=== PATIENT | male | born 1940 | race Caucasian/White ===

== ENCOUNTER 2017-04-23 10:55 | Inpatient (IN) ==
[2017-04-23] MEDS ORDERED: SODIUM CHLORIDE 0.9% 500 ML IV STA (11:22)
[2017-04-23 11:53] LABS: Basophils % 0.2 % (0.0-0.8); Hemoglobin 8.7 GM/DL (14.0-18.0); Immature Granulocytes Absolute 0.15 #; Lymphocytes # 1.1 10*3/uL (1.4-4.0); Lymphocytes % 7.3 % (21.2-54.2); Mean Corpuscular HGB Conc 32.2 GM/DL (32-36); Mean Corpuscular Hemoglobin 24 PG (27-34); Mean Corpuscular Volume 75.6 FL (87-102); Mean Platelet Volume 9.8 FL (9.6-12.0); Monocytes # 0.3 10*3/uL (0.11-0.8); Monocytes % 1.8 % (1.7-12.7); Neutrophils # 13.9 10*3/uL (1.4-7.4); Neutrophils % 89.7 % (38.7-73.9); Platelet Count 291 T/CUMM (130-400); Red Blood Count 3.57 MC/CUMM (3.8-5.5); Red Cell Distribution Width 15.4 % (9.3-17.3); White Blood Count 15.5 T/CUMM (4-12)
[2017-04-23 12:23] LABS: Bilirubin,Total 0.4 MG/DL (0.2-1.0); Magnesium 1.9 MG/DL (1.8-2.4); Osmolality,Calculated 277.7 MOS/KG (273-304); Total Protein 6.3 G/DL (6.4-8.3)
[2017-04-23 12:24] LABS: Lactic Acid 1.3 MMOL/L (0.4-2.0)
[2017-04-23 12:59] LABS: Apearance,Urine CLEAR (Clear); Bilirubin,Urine Negative (Negative); Blood, Urine Negative (Negative); Glucose,Urine (UA) Negative (Negative); Ketones,Urine Negative (Negative); Nitrite,Urine Negative (Negative); Protein,Urine Negative; RBC,Urine <1 /HPF (0-4); Urine Color Straw (Yellow); Urine Specific Gravity 1.006 (1.001-1.035); Urine Urobilinogen < 2.0 EU/DL (0.2-1.0); WBC,Urine 1 /HPF (0-6)
[2017-04-23] MEDS ORDERED: DOCUSATE SODIUM 100 MG CAPSULE PO PRN (13:49)
[2017-04-23] MEDS ORDERED: ONDANSETRON 4 MG/2 ML VIAL IV PRN (13:49)
[2017-04-23] MEDS ORDERED: ACETAMINOPHEN 325 MG TABLET PO PRN (13:49)
[2017-04-23] MEDS ORDERED: ALBUTEROL 2.5 MG/3 ML NEB RESP TX PRN (13:49)
[2017-04-23] MEDS ORDERED: MORPHINE 2 MG/1 ML SYRINGE IV PRN (13:49)
[2017-04-23] MEDS ORDERED: diphenhydrAMINE CAP 25 MG CAPSULE PO PRN (13:49)
[2017-04-23] MEDS ORDERED: PROMETHAZINE 25 MG/1 ML VIAL IM PRN (13:49)
[2017-04-23] MEDS ORDERED: FUROSEMIDE 20 MG TABLET PO PRN (14:01)
[2017-04-23] MEDS ORDERED: SODIUM CHLORIDE 0.65% NASAL SPRAY 45 ML BOTTLE BOTH NARES PRN (14:01)
[2017-04-23] MEDS ORDERED: LEVOFLOXACIN INJ 150 ML IV ONE (14:51)
[2017-04-23] MEDS ORDERED: LISINOPRIL 10 MG TABLET ONE (14:51)
[2017-04-23] MEDS ORDERED: ALUMINUM/MAGNES/SIMETH MAX STR 30 ML UDCUP ONE (14:52)
[2017-04-23] MEDS ORDERED: PANTOPRAZOLE 40 MG TABLET PO ONE (14:52)
[2017-04-23] MEDS ORDERED: ENOXAPARIN 40 MG/0.4 ML SYRINGE ONE (14:52)
[2017-04-23] MEDS ORDERED: TAMSULOSIN 0.4 MG CAPSULE PO ONE (14:52)
[2017-04-23] MEDS: LEVOFLOXACIN INJ 750 MG in PREMIX 1 EACH IV SCH (14:59)
[2017-04-23] MEDS: ENOXAPARIN 40 MG/0.4 ML SYRINGE SUBCUT SCH (15:01)
[2017-04-23] MEDS: PANTOPRAZOLE 40 MG TABLET PO SCH (15:02)
[2017-04-23] MEDS: LISINOPRIL 20 MG TABLET PO SCH ×2 (15:03→21:58)
[2017-04-23] MEDS: ALUMINUM/MAGNES/SIMETH MAX STR 30 ML UDCUP PO SCH ×3 (15:03→22:05)
[2017-04-23] MEDS: TAMSULOSIN 0.4 MG CAPSULE PO SCH ×2 (15:03→21:57)
[2017-04-23] MEDS: LACTULOSE 20 GM/30 ML UDCUP PO SCH ×2 (15:05→21:55)
[2017-04-23] MEDS: oxyCODONE/ACETAMINOPHEN 5-325 MG TABLET PO SCH ×2 (15:30→21:59)
[2017-04-23] MEDS ORDERED: oxyCODONE/ACETAMINOPHEN 5-325 MG TABLET ONE (15:30)
[2017-04-23] MEDS: clonazePAM 0.5 MG TABLET PO SCH ×2 (15:57→21:57)
[2017-04-23] MEDS: guaiFENesin/DM ER 600-30 MG TABLET PO SCH ×2 (16:12→21:59)
[2017-04-23] MEDS: CHOLECALCIFEROL 1,000 UNIT TABLET PO SCH ×2 (16:13→21:58)
[2017-04-23] MEDS: busPIRone 15 MG TABLET PO SCH ×2 (16:13→21:58)
[2017-04-23] MEDS: AZTREONAM 2,000 MG in SYRINGE 1 EACH IV SCH ×2 (16:29→21:51)
[2017-04-23] MEDS: MIRTAZAPINE 30 MG TABLET PO SCH (21:57)
[2017-04-23] MEDS: DICLOFENAC 1% GEL 100 GM TUBE TOP SCH (21:59)
[2017-04-23] MEDS: PRAMIPEXOLE 0.25 MG TABLET PO SCH (21:59)
[2017-04-23] MEDS: SALIVA SUBSTITUTE SPRAY 60 ML CAN SWISH/SPIT SCH ×2 (22:00)
[2017-04-23] MEDS: SODIUM CHLORIDE 0.9% 1,000 ML IV SCH ×2 (22:00→22:01)
[2017-04-23] MEDS: IBUPROFEN 400 MG TABLET PO SCH (22:04)
[2017-04-24] MEDS: ALBUTEROL/IPRATROPIUM 3 ML NEB RESP TX SCH ×5 (01:19→20:36)
[2017-04-24] MEDS: LACTULOSE 20 GM/30 ML UDCUP PO SCH ×5 (02:27→21:23)
[2017-04-24] MEDS: ALUMINUM/MAGNES/SIMETH MAX STR 30 ML UDCUP PO SCH ×3 (02:28→11:02)
[2017-04-24] MEDS: AZTREONAM 2,000 MG in SYRINGE 1 EACH IV SCH ×4 (04:12→21:47)
[2017-04-24] MEDS: SODIUM CHLORIDE 0.9% 1,000 ML IV SCH ×4 (04:15→23:44)
[2017-04-24] MEDS: SALIVA SUBSTITUTE SPRAY 60 ML CAN SWISH/SPIT SCH ×5 (05:39→21:48)
[2017-04-24 07:39] LABS: Basophils % 0.3 % (0.0-0.8); Eosinophils # 0.1 10*3/uL (0.0-0.87); Eosinophils % 1.8 % (0.00-10.9); Hematocrit 24.2 VOL% (42.0-52.0); Hemoglobin 7.5 GM/DL (14.0-18.0); Immature Granulocytes % 0.6 %; Immature Granulocytes Absolute 0.04 #; Lymphocytes # 2.4 10*3/uL (1.4-4.0); Lymphocytes % 34.9 % (21.2-54.2); Mean Corpuscular Hemoglobin 24 PG (27-34); Mean Corpuscular Volume 77.6 FL (87-102); Mean Platelet Volume 9.9 FL (9.6-12.0); Monocytes # 0.5 10*3/uL (0.11-0.8); Monocytes % 6.9 % (1.7-12.7); Neutrophils # 3.8 10*3/uL (1.4-7.4); Neutrophils % 55.5 % (38.7-73.9); Platelet Count 225 T/CUMM (130-400); Red Blood Count 3.12 MC/CUMM (3.8-5.5); Red Cell Distribution Width 15.6 % (9.3-17.3); White Blood Count 6.8 T/CUMM (4-12)
[2017-04-24 08:03] LABS: Calcium 7.4 MG/DL (8.5-10.1); Osmolality,Calculated 277.7 MOS/KG (273-304); Potassium 3.8 MMOL/L (3.5-5.1)
[2017-04-24] MEDS: clonazePAM 0.5 MG TABLET PO SCH ×3 (09:13→21:23)
[2017-04-24] MEDS: guaiFENesin/DM ER 600-30 MG TABLET PO SCH ×2 (09:13→21:23)
[2017-04-24] MEDS: PRAMIPEXOLE 0.25 MG TABLET PO SCH ×2 (09:13→17:56)
[2017-04-24] MEDS: LISINOPRIL 20 MG TABLET PO SCH ×2 (09:13→21:23)
[2017-04-24] MEDS: DICLOFENAC 1% GEL 100 GM TUBE TOP SCH ×2 (09:13→21:24)
[2017-04-24] MEDS: busPIRone 15 MG TABLET PO SCH ×3 (09:13→21:23)
[2017-04-24] MEDS: LACTOBACILLUS ACIDOPHILUS/BULGARICUS CAPLET PO SCH (09:14)
[2017-04-24] MEDS: POTASSIUM CHLORIDE 8 MEQ CAPSULE PO SCH (09:14)
[2017-04-24] MEDS: FINASTERIDE 5 MG TABLET PO SCH (09:14)
[2017-04-24] MEDS: CHOLECALCIFEROL 1,000 UNIT TABLET PO SCH ×2 (09:14→21:23)
[2017-04-24] MEDS: CARBIDOPA/LEVODOPA 25-100 MG TABLET PO SCH (09:14)
[2017-04-24] MEDS: OMEGA 3 ACID ETHYL ESTERS 1 GM CAPSULE PO SCH (09:14)
[2017-04-24] MEDS: PANTOPRAZOLE 40 MG TABLET PO SCH (09:14)
[2017-04-24] MEDS: MULTIVITAMIN (CENTRUM) TABLET PO SCH (09:14)
[2017-04-24] MEDS: oxyCODONE/ACETAMINOPHEN 5-325 MG TABLET PO SCH ×3 (09:14→21:30)
[2017-04-24] MEDS: amLODIPine 10 MG TABLET PO SCH (09:14)
[2017-04-24] MEDS: TAMSULOSIN 0.4 MG CAPSULE PO SCH ×2 (09:14→21:23)
[2017-04-24] MEDS: IBUPROFEN 400 MG TABLET PO SCH ×2 (09:14→17:53)
[2017-04-24] MEDS: METHEN/SOD PHOS/METH BLUE/HYOS TABLET PO SCH (09:15)
[2017-04-24] MEDS: POLYETHYLENE GLYCOL POWDER 17 GM PACK PO SCH ×2 (11:03→21:23)
[2017-04-24] MEDS: LEVOFLOXACIN INJ 750 MG in PREMIX 1 EACH IV SCH (14:18)
[2017-04-24] MEDS: ENOXAPARIN 40 MG/0.4 ML SYRINGE SUBCUT SCH (14:22)
[2017-04-24] MEDS: ALUMINUM/MAGNES/SIMETH MAX STR 30 ML UDCUP PO PRN (20:39)
[2017-04-24] MEDS: MIRTAZAPINE 30 MG TABLET PO SCH (21:23)
[2017-04-25] MEDS: ALBUTEROL/IPRATROPIUM 3 ML NEB RESP TX SCH ×4 (01:21→20:45)
[2017-04-25] MEDS: LACTULOSE 20 GM/30 ML UDCUP PO SCH ×3 (02:29→14:50)
[2017-04-25] MEDS: AZTREONAM 2,000 MG in SYRINGE 1 EACH IV SCH ×4 (05:10→23:02)
[2017-04-25] MEDS: SALIVA SUBSTITUTE SPRAY 60 ML CAN SWISH/SPIT SCH ×5 (06:11→23:11)
[2017-04-25 07:05] LABS: Basophils % 0.2 % (0.0-0.8); Eosinophils # 0.2 10*3/uL (0.0-0.87); Eosinophils % 1.5 % (0.00-10.9); Hematocrit 28.3 VOL% (42.0-52.0); Hemoglobin 8.8 GM/DL (14.0-18.0); Immature Granulocytes % 0.7 %; Immature Granulocytes Absolute 0.08 #; Lymphocytes # 1.3 10*3/uL (1.4-4.0); Mean Corpuscular HGB Conc 31.1 GM/DL (32-36); Mean Corpuscular Hemoglobin 24 PG (27-34); Mean Corpuscular Volume 78.2 FL (87-102); Mean Platelet Volume 10.3 FL (9.6-12.0); Monocytes # 0.5 10*3/uL (0.11-0.8); Monocytes % 4.5 % (1.7-12.7); Neutrophils # 9.9 10*3/uL (1.4-7.4); Neutrophils % 82.1 % (38.7-73.9); Platelet Count 282 T/CUMM (130-400); Red Blood Count 3.62 MC/CUMM (3.8-5.5); Red Cell Distribution Width 15.8 % (9.3-17.3)
[2017-04-25] MEDS: oxyCODONE/ACETAMINOPHEN 5-325 MG TABLET PO SCH ×3 (07:56→23:00)
[2017-04-25] MEDS: SODIUM CHLORIDE 0.9% 1,000 ML IV SCH ×2 (07:59→18:05)
[2017-04-25] MEDS: OMEGA 3 ACID ETHYL ESTERS 1 GM CAPSULE PO SCH (10:07)
[2017-04-25] MEDS: POTASSIUM CHLORIDE 8 MEQ CAPSULE PO SCH (10:08)
[2017-04-25] MEDS: FINASTERIDE 5 MG TABLET PO SCH (10:09)
[2017-04-25] MEDS: clonazePAM 0.5 MG TABLET PO SCH ×3 (10:09→23:01)
[2017-04-25] MEDS: LISINOPRIL 20 MG TABLET PO SCH ×2 (10:09→22:57)
[2017-04-25] MEDS: PANTOPRAZOLE 40 MG TABLET PO SCH (10:10)
[2017-04-25] MEDS: amLODIPine 10 MG TABLET PO SCH (10:10)
[2017-04-25] MEDS: TAMSULOSIN 0.4 MG CAPSULE PO SCH ×2 (10:10→22:59)
[2017-04-25] MEDS: MULTIVITAMIN (CENTRUM) TABLET PO SCH (10:11)
[2017-04-25] MEDS: IBUPROFEN 400 MG TABLET PO SCH ×2 (10:11→18:02)
[2017-04-25] MEDS: PRAMIPEXOLE 0.25 MG TABLET PO SCH ×2 (10:12→18:02)
[2017-04-25] MEDS: LACTOBACILLUS ACIDOPHILUS/BULGARICUS CAPLET PO SCH (10:13)
[2017-04-25] MEDS: guaiFENesin/DM ER 600-30 MG TABLET PO SCH ×2 (10:13→23:01)
[2017-04-25] MEDS: CARBIDOPA/LEVODOPA 25-100 MG TABLET PO SCH (10:13)
[2017-04-25] MEDS: CHOLECALCIFEROL 1,000 UNIT TABLET PO SCH ×2 (10:13→23:01)
[2017-04-25] MEDS: busPIRone 15 MG TABLET PO SCH ×3 (10:14→22:59)
[2017-04-25] MEDS: METHEN/SOD PHOS/METH BLUE/HYOS TABLET PO SCH (10:16)
[2017-04-25] MEDS: DICLOFENAC 1% GEL 100 GM TUBE TOP SCH ×2 (10:18→23:11)
[2017-04-25] MEDS: POLYETHYLENE GLYCOL POWDER 17 GM PACK PO SCH (10:33)
[2017-04-25] MEDS: ENOXAPARIN 40 MG/0.4 ML SYRINGE SUBCUT SCH (14:52)
[2017-04-25] MEDS: LEVOFLOXACIN INJ 750 MG in PREMIX 1 EACH IV SCH (14:53)
[2017-04-25] MEDS ORDERED: SODIUM PHOSPHATE ENEMA 133 ML BOTTLE RECTAL PRN (16:28)
[2017-04-25] MEDS ORDERED: POLYETHYLENE GLYCOL POWDER 17 GM PACK PO SCH (21:00)
[2017-04-25] MEDS ORDERED: PANTOPRAZOLE 40 MG TABLET PO SCH (21:00)
[2017-04-25] MEDS: MIRTAZAPINE 30 MG TABLET PO SCH (23:10)
[2017-04-26] MEDS: ALBUTEROL/IPRATROPIUM 3 ML NEB RESP TX SCH ×4 (01:13→20:30)
[2017-04-26] MEDS: SODIUM CHLORIDE 0.9% 1,000 ML IV SCH ×3 (01:52→18:45)
[2017-04-26 04:23] LABS: Apearance,Urine CLEAR (Clear); Bilirubin,Urine Negative (Negative); Blood, Urine Negative (Negative); Glucose,Urine (UA) Negative (Negative); Ketones,Urine Negative (Negative); Nitrite,Urine Negative (Negative); Protein,Urine Negative; RBC,Urine <1 /HPF (0-4); Urine Specific Gravity 1.015 (1.001-1.035); Urine Urobilinogen < 2.0 EU/DL (0.2-1.0); WBC,Urine 5 /HPF (0-6)
[2017-04-26 04:24] LABS: Urine Color Light Green (Yellow)
[2017-04-26] MEDS: AZTREONAM 2,000 MG in SYRINGE 1 EACH IV SCH ×4 (04:49→22:39)
[2017-04-26] MEDS: SALIVA SUBSTITUTE SPRAY 60 ML CAN SWISH/SPIT SCH ×5 (06:50→22:26)
[2017-04-26] MEDS: DICLOFENAC 1% GEL 100 GM TUBE TOP SCH ×2 (10:13→22:25)
[2017-04-26] MEDS: MULTIVITAMIN (CENTRUM) TABLET PO SCH (10:14)
[2017-04-26] MEDS: CHOLECALCIFEROL 1,000 UNIT TABLET PO SCH ×2 (10:14→22:25)
[2017-04-26] MEDS: amLODIPine 10 MG TABLET PO SCH (10:14)
[2017-04-26] MEDS: clonazePAM 0.5 MG TABLET PO SCH ×3 (10:14→22:25)
[2017-04-26] MEDS: CARBIDOPA/LEVODOPA 25-100 MG TABLET PO SCH (10:14)
[2017-04-26] MEDS: LACTOBACILLUS ACIDOPHILUS/BULGARICUS CAPLET PO SCH (10:15)
[2017-04-26] MEDS: TAMSULOSIN 0.4 MG CAPSULE PO SCH ×2 (10:15→22:24)
[2017-04-26] MEDS: POTASSIUM CHLORIDE 8 MEQ CAPSULE PO SCH (10:15)
[2017-04-26] MEDS: busPIRone 15 MG TABLET PO SCH ×3 (10:15→22:25)
[2017-04-26] MEDS: METHEN/SOD PHOS/METH BLUE/HYOS TABLET PO SCH (10:15)
[2017-04-26] MEDS: oxyCODONE/ACETAMINOPHEN 5-325 MG TABLET PO SCH ×3 (10:16→22:22)
[2017-04-26] MEDS: guaiFENesin/DM ER 600-30 MG TABLET PO SCH ×2 (10:16→22:24)
[2017-04-26] MEDS: FINASTERIDE 5 MG TABLET PO SCH (10:16)
[2017-04-26] MEDS: BISACODYL 5 MG TABLET PO SCH (10:16)
[2017-04-26] MEDS: OMEGA 3 ACID ETHYL ESTERS 1 GM CAPSULE PO SCH (10:16)
[2017-04-26] MEDS: LISINOPRIL 20 MG TABLET PO SCH ×2 (10:16→22:26)
[2017-04-26] MEDS: PRAMIPEXOLE 0.25 MG TABLET PO SCH ×2 (10:17→17:45)
[2017-04-26] MEDS: IBUPROFEN 400 MG TABLET PO SCH ×2 (10:17→17:45)
[2017-04-26] MEDS: ENOXAPARIN 40 MG/0.4 ML SYRINGE SUBCUT SCH (14:30)
[2017-04-26] MEDS: LEVOFLOXACIN INJ 750 MG in PREMIX 1 EACH IV SCH (14:31)
[2017-04-26 15:36] LABS: Apearance,Urine CLEAR (Clear); Bilirubin,Urine Negative (Negative); Blood, Urine Negative (Negative); Glucose,Urine (UA) Negative (Negative); Ketones,Urine Negative (Negative); Nitrite,Urine Negative (Negative); Protein,Urine Negative; RBC,Urine <1 /HPF (0-4); Urine Specific Gravity 1.005 (1.001-1.035); Urine Urobilinogen < 2.0 EU/DL (0.2-1.0)
[2017-04-26 15:37] LABS: Urine Color Light Green (Yellow)
[2017-04-26] MEDS: MIRTAZAPINE 30 MG TABLET PO SCH (22:24)
[2017-04-26] MEDS: ALUMINUM/MAGNES/SIMETH MAX STR 30 ML UDCUP PO PRN (22:25)
[2017-04-27] MEDS: ALBUTEROL/IPRATROPIUM 3 ML NEB RESP TX SCH ×5 (01:20→20:49)
[2017-04-27] MEDS: SODIUM CHLORIDE 0.9% 1,000 ML IV SCH ×3 (02:49→18:05)
[2017-04-27] MEDS: AZTREONAM 2,000 MG in SYRINGE 1 EACH IV SCH ×4 (03:45→22:42)
[2017-04-27] MEDS: SALIVA SUBSTITUTE SPRAY 60 ML CAN SWISH/SPIT SCH ×5 (05:38→22:54)
[2017-04-27 05:54] LABS: Basophils % 0.3 % (0.0-0.8); Eosinophils # 0.5 10*3/uL (0.0-0.87); Eosinophils % 5.4 % (0.00-10.9); Hematocrit 25.1 VOL% (42.0-52.0); Hemoglobin 7.7 GM/DL (14.0-18.0); Immature Granulocytes Absolute 0.09 #; Lymphocytes % 20.9 % (21.2-54.2); Mean Corpuscular HGB Conc 30.7 GM/DL (32-36); Mean Corpuscular Hemoglobin 24 PG (27-34); Mean Corpuscular Volume 78.4 FL (87-102); Mean Platelet Volume 10.2 FL (9.6-12.0); Monocytes # 0.4 10*3/uL (0.11-0.8); Neutrophils # 6.4 10*3/uL (1.4-7.4); Neutrophils % 68.4 % (38.7-73.9); Platelet Count 258 T/CUMM (130-400); White Blood Count 9.4 T/CUMM (4-12)
[2017-04-27 06:06] LABS: Calcium 7.7 MG/DL (8.5-10.1); Osmolality,Calculated 289.7 MOS/KG (273-304); Potassium 3.9 MMOL/L (3.5-5.1)
[2017-04-27] MEDS: oxyCODONE/ACETAMINOPHEN 5-325 MG TABLET PO SCH ×3 (10:29→22:50)
[2017-04-27] MEDS: BISACODYL 5 MG TABLET PO SCH (10:29)
[2017-04-27] MEDS: POTASSIUM CHLORIDE 8 MEQ CAPSULE PO SCH (10:29)
[2017-04-27] MEDS: LACTOBACILLUS ACIDOPHILUS/BULGARICUS CAPLET PO SCH (10:29)
[2017-04-27] MEDS: PRAMIPEXOLE 0.25 MG TABLET PO SCH ×2 (10:30→17:03)
[2017-04-27] MEDS: amLODIPine 10 MG TABLET PO SCH (10:30)
[2017-04-27] MEDS: MULTIVITAMIN (CENTRUM) TABLET PO SCH (10:30)
[2017-04-27] MEDS: busPIRone 15 MG TABLET PO SCH ×3 (10:30→21:37)
[2017-04-27] MEDS: TAMSULOSIN 0.4 MG CAPSULE PO SCH ×2 (10:30→21:37)
[2017-04-27] MEDS: OMEGA 3 ACID ETHYL ESTERS 1 GM CAPSULE PO SCH (10:30)
[2017-04-27] MEDS: guaiFENesin/DM ER 600-30 MG TABLET PO SCH ×2 (10:30→21:37)
[2017-04-27] MEDS: clonazePAM 0.5 MG TABLET PO SCH ×3 (10:30→21:37)
[2017-04-27] MEDS: IBUPROFEN 400 MG TABLET PO SCH ×2 (10:30→17:03)
[2017-04-27] MEDS: FINASTERIDE 5 MG TABLET PO SCH (10:31)
[2017-04-27] MEDS: LISINOPRIL 20 MG TABLET PO SCH ×2 (10:31→21:37)
[2017-04-27] MEDS: CHOLECALCIFEROL 1,000 UNIT TABLET PO SCH ×2 (10:32→21:37)
[2017-04-27] MEDS: METHEN/SOD PHOS/METH BLUE/HYOS TABLET PO SCH (10:32)
[2017-04-27] MEDS: DICLOFENAC 1% GEL 100 GM TUBE TOP SCH ×2 (10:32→21:39)
[2017-04-27] MEDS: CARBIDOPA/LEVODOPA 25-100 MG TABLET PO SCH (10:32)
[2017-04-27] MEDS: LEVOFLOXACIN INJ 750 MG in PREMIX 1 EACH IV SCH (14:49)
[2017-04-27] MEDS: ENOXAPARIN 40 MG/0.4 ML SYRINGE SUBCUT SCH (14:49)
[2017-04-27] MEDS: MIRTAZAPINE 30 MG TABLET PO SCH (21:36)
[2017-04-28] MEDS: ALBUTEROL/IPRATROPIUM 3 ML NEB RESP TX SCH ×3 (01:14→19:42)
[2017-04-28] MEDS: AZTREONAM 2,000 MG in SYRINGE 1 EACH IV SCH ×4 (03:57→21:22)
[2017-04-28 05:18] LABS: Basophils % 0.2 % (0.0-0.8); Eosinophils # 0.3 10*3/uL (0.0-0.87); Hematocrit 23.9 VOL% (42.0-52.0); Hemoglobin 7.3 GM/DL (14.0-18.0); Immature Granulocytes % 0.9 %; Immature Granulocytes Absolute 0.09 #; Lymphocytes # 1.7 10*3/uL (1.4-4.0); Lymphocytes % 15.7 % (21.2-54.2); Mean Corpuscular HGB Conc 30.5 GM/DL (32-36); Mean Corpuscular Hemoglobin 24 PG (27-34); Mean Corpuscular Volume 78.9 FL (87-102); Mean Platelet Volume 10.3 FL (9.6-12.0); Monocytes # 0.4 10*3/uL (0.11-0.8); Monocytes % 3.9 % (1.7-12.7); Neutrophils % 76.3 % (38.7-73.9); Platelet Count 270 T/CUMM (130-400); Red Blood Count 3.03 MC/CUMM (3.8-5.5); Red Cell Distribution Width 16.3 % (9.3-17.3); White Blood Count 10.5 T/CUMM (4-12)
[2017-04-28 05:56] LABS: Calcium 7.7 MG/DL (8.5-10.1); Magnesium 2.2 MG/DL (1.8-2.4); Osmolality,Calculated 291.8 MOS/KG (273-304); Potassium 3.8 MMOL/L (3.5-5.1)
[2017-04-28] MEDS: SALIVA SUBSTITUTE SPRAY 60 ML CAN SWISH/SPIT SCH ×5 (06:59→22:32)
[2017-04-28] MEDS: BISACODYL 5 MG TABLET PO SCH (09:32)
[2017-04-28] MEDS: clonazePAM 0.5 MG TABLET PO SCH ×3 (09:33→21:19)
[2017-04-28] MEDS: MULTIVITAMIN (CENTRUM) TABLET PO SCH (09:33)
[2017-04-28] MEDS: LACTOBACILLUS ACIDOPHILUS/BULGARICUS CAPLET PO SCH (09:33)
[2017-04-28] MEDS: POTASSIUM CHLORIDE 8 MEQ CAPSULE PO SCH (09:33)
[2017-04-28] MEDS: TAMSULOSIN 0.4 MG CAPSULE PO SCH ×2 (09:33→21:19)
[2017-04-28] MEDS: busPIRone 15 MG TABLET PO SCH ×3 (09:33→21:19)
[2017-04-28] MEDS: PRAMIPEXOLE 0.25 MG TABLET PO SCH ×2 (09:33→17:17)
[2017-04-28] MEDS: oxyCODONE/ACETAMINOPHEN 5-325 MG TABLET PO SCH ×3 (09:33→22:57)
[2017-04-28] MEDS: OMEGA 3 ACID ETHYL ESTERS 1 GM CAPSULE PO SCH (09:33)
[2017-04-28] MEDS: IBUPROFEN 400 MG TABLET PO SCH ×2 (09:33→17:18)
[2017-04-28] MEDS: FINASTERIDE 5 MG TABLET PO SCH (09:34)
[2017-04-28] MEDS: CHOLECALCIFEROL 1,000 UNIT TABLET PO SCH ×2 (09:34→21:18)
[2017-04-28] MEDS: DICLOFENAC 1% GEL 100 GM TUBE TOP SCH ×2 (09:34→21:19)
[2017-04-28] MEDS: METHEN/SOD PHOS/METH BLUE/HYOS TABLET PO SCH (09:34)
[2017-04-28] MEDS: CARBIDOPA/LEVODOPA 25-100 MG TABLET PO SCH (09:34)
[2017-04-28] MEDS: guaiFENesin/DM ER 600-30 MG TABLET PO SCH ×2 (09:34→21:19)
[2017-04-28] MEDS: amLODIPine 10 MG TABLET PO SCH (09:34)
[2017-04-28] MEDS: LISINOPRIL 20 MG TABLET PO SCH ×2 (09:34→21:18)
[2017-04-28] MEDS: ENOXAPARIN 40 MG/0.4 ML SYRINGE SUBCUT SCH (14:53)
[2017-04-28] MEDS: LEVOFLOXACIN INJ 750 MG in PREMIX 1 EACH IV SCH (14:53)
[2017-04-28] MEDS: SODIUM CHLORIDE 0.9% 1,000 ML IV SCH ×2 (15:06→15:07)
[2017-04-28] MEDS: MIRTAZAPINE 30 MG TABLET PO SCH (21:18)
[2017-04-29] MEDS: ALBUTEROL/IPRATROPIUM 3 ML NEB RESP TX SCH ×4 (00:20→20:06)
[2017-04-29] MEDS: SODIUM CHLORIDE 0.9% 1,000 ML IV SCH ×2 (01:24→10:53)
[2017-04-29] MEDS: AZTREONAM 2,000 MG in SYRINGE 1 EACH IV SCH ×3 (05:09→16:28)
[2017-04-29] MEDS: SALIVA SUBSTITUTE SPRAY 60 ML CAN SWISH/SPIT SCH ×4 (06:40→19:45)
[2017-04-29 07:06] LABS: Basophils % 0.2 % (0.0-0.8); Eosinophils # 0.5 10*3/uL (0.0-0.87); Eosinophils % 5.9 % (0.00-10.9); Hematocrit 22.2 VOL% (42.0-52.0); Hemoglobin 6.8 GM/DL (14.0-18.0); Immature Granulocytes % 1.2 %; Immature Granulocytes Absolute 0.11 #; Lymphocytes # 1.4 10*3/uL (1.4-4.0); Lymphocytes % 15.6 % (21.2-54.2); Mean Corpuscular HGB Conc 30.6 GM/DL (32-36); Mean Corpuscular Hemoglobin 24 PG (27-34); Mean Platelet Volume 9.9 FL (9.6-12.0); Monocytes # 0.4 10*3/uL (0.11-0.8); Monocytes % 4.5 % (1.7-12.7); Neutrophils # 6.4 10*3/uL (1.4-7.4); Neutrophils % 72.6 % (38.7-73.9); Platelet Count 283 T/CUMM (130-400); Red Blood Count 2.81 MC/CUMM (3.8-5.5); Red Cell Distribution Width 16.2 % (9.3-17.3); White Blood Count 8.9 T/CUMM (4-12)
[2017-04-29 07:34] LABS: Calcium 7.7 MG/DL (8.5-10.1); Magnesium 1.9 MG/DL (1.8-2.4); Osmolality,Calculated 295.6 MOS/KG (273-304); Potassium 3.7 MMOL/L (3.5-5.1)
[2017-04-29] MEDS ORDERED: SODIUM CHLORIDE 0.9% 1,000 ML IV PRN (07:35)
[2017-04-29 07:38] LABS: % Iron Saturation 5.7 % (18-50); Ferritin 42.2 ng/ml (26-388)
[2017-04-29] MEDS: BISACODYL 5 MG TABLET PO SCH (09:51)
[2017-04-29] MEDS: POTASSIUM CHLORIDE 8 MEQ CAPSULE PO SCH (09:51)
[2017-04-29] MEDS: oxyCODONE/ACETAMINOPHEN 5-325 MG TABLET PO SCH ×2 (09:52→16:21)
[2017-04-29] MEDS: busPIRone 15 MG TABLET PO SCH ×3 (09:53→21:17)
[2017-04-29] MEDS: LACTOBACILLUS ACIDOPHILUS/BULGARICUS CAPLET PO SCH (09:53)
[2017-04-29] MEDS: MULTIVITAMIN (CENTRUM) TABLET PO SCH (09:53)
[2017-04-29] MEDS: TAMSULOSIN 0.4 MG CAPSULE PO SCH ×2 (09:54→21:16)
[2017-04-29] MEDS: OMEGA 3 ACID ETHYL ESTERS 1 GM CAPSULE PO SCH (09:54)
[2017-04-29] MEDS: clonazePAM 0.5 MG TABLET PO SCH ×3 (09:54→21:17)
[2017-04-29] MEDS: IBUPROFEN 400 MG TABLET PO SCH ×2 (09:55→19:52)
[2017-04-29] MEDS: amLODIPine 10 MG TABLET PO SCH (09:55)
[2017-04-29] MEDS: PRAMIPEXOLE 0.25 MG TABLET PO SCH ×2 (09:55→19:51)
[2017-04-29] MEDS: guaiFENesin/DM ER 600-30 MG TABLET PO SCH ×2 (09:55→21:16)
[2017-04-29] MEDS: LISINOPRIL 20 MG TABLET PO SCH ×2 (09:56→21:17)
[2017-04-29] MEDS: CHOLECALCIFEROL 1,000 UNIT TABLET PO SCH ×2 (09:56→21:16)
[2017-04-29] MEDS: CARBIDOPA/LEVODOPA 25-100 MG TABLET PO SCH (09:56)
[2017-04-29] MEDS: FINASTERIDE 5 MG TABLET PO SCH (09:56)
[2017-04-29] MEDS: METHEN/SOD PHOS/METH BLUE/HYOS TABLET PO SCH (09:57)
[2017-04-29] MEDS: DICLOFENAC 1% GEL 100 GM TUBE TOP SCH (10:03)
[2017-04-29] MEDS: LEVOFLOXACIN INJ 750 MG in PREMIX 1 EACH IV SCH (13:45)
[2017-04-29] MEDS ORDERED: FUROSEMIDE 40 MG/4 ML VIAL IV ONE (15:03)
[2017-04-29] MEDS: ENOXAPARIN 40 MG/0.4 ML SYRINGE SUBCUT SCH (19:43)
[2017-04-29] MEDS: MIRTAZAPINE 30 MG TABLET PO SCH (21:16)
[2017-04-30] MEDS: ALBUTEROL/IPRATROPIUM 3 ML NEB RESP TX SCH ×4 (00:48→21:01)
[2017-04-30] MEDS: AZTREONAM 2,000 MG in SYRINGE 1 EACH IV SCH ×5 (00:56→22:00)
[2017-04-30] MEDS: SALIVA SUBSTITUTE SPRAY 60 ML CAN SWISH/SPIT SCH ×6 (01:10→21:07)
[2017-04-30] MEDS: oxyCODONE/ACETAMINOPHEN 5-325 MG TABLET PO SCH ×4 (01:10→22:01)
[2017-04-30] MEDS: DICLOFENAC 1% GEL 100 GM TUBE TOP SCH ×3 (01:10→21:07)
[2017-04-30 06:19] LABS: Basophils % 0.5 % (0.0-0.8); Eosinophils # 0.6 10*3/uL (0.0-0.87); Eosinophils % 7.7 % (0.00-10.9); Hematocrit 24.9 VOL% (42.0-52.0); Immature Granulocytes % 1.1 %; Immature Granulocytes Absolute 0.08 #; Lymphocytes # 1.7 10*3/uL (1.4-4.0); Lymphocytes % 23.4 % (21.2-54.2); Mean Corpuscular HGB Conc 32.1 GM/DL (32-36); Mean Corpuscular Hemoglobin 26 PG (27-34); Mean Corpuscular Volume 79.6 FL (87-102); Mean Platelet Volume 9.8 FL (9.6-12.0); Monocytes # 0.5 10*3/uL (0.11-0.8); Monocytes % 6.4 % (1.7-12.7); Neutrophils # 4.5 10*3/uL (1.4-7.4); Neutrophils % 60.9 % (38.7-73.9); Platelet Count 282 T/CUMM (130-400); Red Blood Count 3.13 MC/CUMM (3.8-5.5); Red Cell Distribution Width 16.6 % (9.3-17.3); White Blood Count 7.4 T/CUMM (4-12)
[2017-04-30 06:22] LABS: Hematocrit 25.1 VOL% (42.0-52.0)
[2017-04-30 07:02] LABS: Calcium 7.9 MG/DL (8.5-10.1); Magnesium 1.7 MG/DL (1.8-2.4); Osmolality,Calculated 293.6 MOS/KG (273-304); Potassium 3.3 MMOL/L (3.5-5.1)
[2017-04-30] MEDS: BISACODYL 5 MG TABLET PO SCH ×2 (09:43→10:43)
[2017-04-30] MEDS ORDERED: POTASSIUM CHLORIDE 10 MEQ TABLET PO ONE (09:57)
[2017-04-30] MEDS: FERROUS SULFATE 325 MG TABLET PO SCH ×3 (09:58→21:06)
[2017-04-30] MEDS: MULTIVITAMIN (CENTRUM) TABLET PO SCH (09:58)
[2017-04-30] MEDS: POTASSIUM CHLORIDE 8 MEQ CAPSULE PO SCH (09:59)
[2017-04-30] MEDS: clonazePAM 0.5 MG TABLET PO SCH ×3 (10:00→21:06)
[2017-04-30] MEDS: FINASTERIDE 5 MG TABLET PO SCH (10:00)
[2017-04-30] MEDS: guaiFENesin/DM ER 600-30 MG TABLET PO SCH ×2 (10:00→21:06)
[2017-04-30] MEDS: TAMSULOSIN 0.4 MG CAPSULE PO SCH ×2 (10:01→21:05)
[2017-04-30] MEDS: IBUPROFEN 400 MG TABLET PO SCH ×2 (10:01→18:38)
[2017-04-30] MEDS: LACTOBACILLUS ACIDOPHILUS/BULGARICUS CAPLET PO SCH (10:01)
[2017-04-30] MEDS: OMEGA 3 ACID ETHYL ESTERS 1 GM CAPSULE PO SCH (10:02)
[2017-04-30] MEDS: PRAMIPEXOLE 0.25 MG TABLET PO SCH ×2 (10:03→18:38)
[2017-04-30] MEDS: CARBIDOPA/LEVODOPA 25-100 MG TABLET PO SCH (10:03)
[2017-04-30] MEDS: CHOLECALCIFEROL 1,000 UNIT TABLET PO SCH ×2 (10:03→21:05)
[2017-04-30] MEDS: busPIRone 15 MG TABLET PO SCH ×3 (10:04→21:05)
[2017-04-30] MEDS: METHEN/SOD PHOS/METH BLUE/HYOS TABLET PO SCH (10:21)
[2017-04-30] MEDS: amLODIPine 10 MG TABLET PO SCH (10:22)
[2017-04-30] MEDS: LISINOPRIL 20 MG TABLET PO SCH ×2 (10:23→21:05)
[2017-04-30] MEDS: LEVOFLOXACIN INJ 750 MG in PREMIX 1 EACH IV SCH (16:01)
[2017-04-30] MEDS: MIRTAZAPINE 30 MG TABLET PO SCH (21:06)
[2017-05-01] MEDS: ALBUTEROL/IPRATROPIUM 3 ML NEB RESP TX SCH ×2 (00:46→07:20)
[2017-05-01] MEDS: oxyCODONE/ACETAMINOPHEN 5-325 MG TABLET PO SCH (01:22)
[2017-05-01] MEDS: AZTREONAM 2,000 MG in SYRINGE 1 EACH IV SCH ×2 (03:18→10:00)
[2017-05-01 06:10] LABS: Basophils % 0.5 % (0.0-0.8); Eosinophils # 0.5 10*3/uL (0.0-0.87); Eosinophils % 6.4 % (0.00-10.9); Hemoglobin 8.2 GM/DL (14.0-18.0); Immature Granulocytes % 1.5 %; Immature Granulocytes Absolute 0.12 #; Lymphocytes # 1.4 10*3/uL (1.4-4.0); Lymphocytes % 16.4 % (21.2-54.2); Mean Corpuscular HGB Conc 31.5 GM/DL (32-36); Mean Corpuscular Hemoglobin 25 PG (27-34); Mean Corpuscular Volume 79.8 FL (87-102); Mean Platelet Volume 10.1 FL (9.6-12.0); Monocytes # 0.4 10*3/uL (0.11-0.8); Monocytes % 5.2 % (1.7-12.7); Neutrophils # 5.8 10*3/uL (1.4-7.4); Platelet Count 301 T/CUMM (130-400); Red Blood Count 3.26 MC/CUMM (3.8-5.5); Red Cell Distribution Width 17.1 % (9.3-17.3); White Blood Count 8.3 T/CUMM (4-12)
[2017-05-01 06:42] LABS: Calcium 7.9 MG/DL (8.5-10.1); Magnesium 1.8 MG/DL (1.8-2.4); Osmolality,Calculated 291.6 MOS/KG (273-304); Potassium 3.5 MMOL/L (3.5-5.1)
[2017-05-01] MEDS: CHOLECALCIFEROL 1,000 UNIT TABLET PO SCH (10:10)
[2017-05-01] MEDS: PRAMIPEXOLE 0.25 MG TABLET PO SCH (10:10)
[2017-05-01] MEDS: BISACODYL 5 MG TABLET PO SCH (10:11)
[2017-05-01] MEDS: amLODIPine 10 MG TABLET PO SCH (10:11)
[2017-05-01] MEDS: CARBIDOPA/LEVODOPA 25-100 MG TABLET PO SCH (10:11)
[2017-05-01] MEDS: LISINOPRIL 20 MG TABLET PO SCH (10:11)
[2017-05-01] MEDS: TAMSULOSIN 0.4 MG CAPSULE PO SCH (10:11)
[2017-05-01] MEDS: busPIRone 15 MG TABLET PO SCH (10:11)
[2017-05-01] MEDS: LACTOBACILLUS ACIDOPHILUS/BULGARICUS CAPLET PO SCH (10:12)
[2017-05-01] MEDS: OMEGA 3 ACID ETHYL ESTERS 1 GM CAPSULE PO SCH (10:12)
[2017-05-01] MEDS: FERROUS SULFATE 325 MG TABLET PO SCH (10:12)
[2017-05-01] MEDS: FINASTERIDE 5 MG TABLET PO SCH (10:13)
[2017-05-01] MEDS: POTASSIUM CHLORIDE 8 MEQ CAPSULE PO SCH (10:13)
[2017-05-01] MEDS: IBUPROFEN 400 MG TABLET PO SCH (10:13)
[2017-05-01] MEDS: guaiFENesin/DM ER 600-30 MG TABLET PO SCH (10:13)
[2017-05-01] MEDS: MULTIVITAMIN (CENTRUM) TABLET PO SCH (10:13)
[2017-05-01] MEDS: DICLOFENAC 1% GEL 100 GM TUBE TOP SCH (10:14)
[2017-05-01] MEDS: METHEN/SOD PHOS/METH BLUE/HYOS TABLET PO SCH (10:14)
[2017-05-01] MEDS: SALIVA SUBSTITUTE SPRAY 60 ML CAN SWISH/SPIT SCH ×2 (10:14→12:01)
[2017-05-01 11:52] VITALS: BP 125/68
== END 2017-05-01 12:00 | DRG 871 ==
LOC: EDUNIT# → EDBD → N.ED 10:55 → N.EDINP 13:15 → SUATTDRO 13:15 → N.EDINP 18:05 → N.3E 18:35
PROVIDERS: ADMIT Internal Medicine; ATTEND Internal Medicine

== ENCOUNTER 2019-10-02 11:57 | Inpatient (IN) ==
[2019-10-02] MEDS ORDERED: FUROSEMIDE 40 MG/4 ML VIAL IV STA (12:38)
[2019-10-02 13:21] LABS: Basophils % 0.2 % (0.0-0.8); Eosinophils % 0.3 % (0.00-10.9); Hematocrit 32.6 VOL% (42.0-52.0); Immature Granulocytes % 1.1 %; Immature Granulocytes Absolute 0.11 #; Lymphocytes # 1.4 10*3/uL (1.4-4.0); Mean Corpuscular HGB Conc 33.7 GM/DL (32-36); Mean Corpuscular Volume 87.2 FL (87-102); Mean Platelet Volume 9.9 FL (9.6-12.0); Monocytes % 7.4 % (1.7-12.7); Platelet Count 180 T/CUMM (130-400); Red Blood Count 3.74 MC/CUMM (3.8-5.5); Red Cell Distribution Width 14.2 % (9.3-17.3)
[2019-10-02 13:40] LABS: Albumin 2.9 G/DL (3.4-5.0); Bilirubin,Total 0.6 MG/DL (0.2-1.0); Osmolality,Calculated 239.3 MOS/KG (273-304); Total Protein 6.9 G/DL (6.4-8.3)
[2019-10-02 14:03] LABS: Apearance,Urine CLEAR (Clear); Bilirubin,Urine Negative (Negative); Blood, Urine Negative (Negative); Glucose,Urine (UA) Negative (Negative); Ketones,Urine Negative (Negative); Nitrite,Urine Negative (Negative); Protein,Urine Negative; RBC,Urine 1 /HPF (0-4); Urine Color Straw (Yellow); Urine Specific Gravity 1.005 (1.001-1.035); Urine Urobilinogen < 2.0 EU/DL (0.2-1.0); WBC,Urine 1 /HPF (0-6)
[2019-10-02 15:44] LABS: Free T4 (Free Thyroxine) 1.03 NG/DL (0.76-1.46); Thyroid Stimulating Hormone 4.57 uIU/ml (0.358-3.74)
[2019-10-02] MEDS ORDERED: hydrALAZINE 20 MG/1 ML VIAL IV PRN (15:52)
[2019-10-02] MEDS ORDERED: ACETAMINOPHEN 325 MG TABLET PO PRN (15:52)
[2019-10-02] MEDS ORDERED: ONDANSETRON 4 MG/2 ML VIAL IV PRN (15:52)
[2019-10-02] MEDS ORDERED: LEVOFLOXACIN INJ 750 MG in PREMIX 1 EACH IV SCH (17:00)
[2019-10-02] MEDS: FUROSEMIDE 40 MG/4 ML VIAL IV SCH (18:40)
[2019-10-02] MEDS: VANCOMYCIN INJ 1,250 MG in SODIUM CHLORIDE 0.9% 250 ML IV SCH (18:49)
[2019-10-02] MEDS: CEFEPIME 1,000 MG in SODIUM CHLORIDE 0.9% 100 ML IV SCH (20:27)
[2019-10-02] MEDS: ENOXAPARIN 40 MG/0.4 ML SYRINGE SUBCUT SCH (20:28)
[2019-10-03] MEDS: CEFEPIME 1,000 MG in SODIUM CHLORIDE 0.9% 100 ML IV SCH ×4 (02:30→20:23)
[2019-10-03] MEDS: VANCOMYCIN INJ 1,250 MG in SODIUM CHLORIDE 0.9% 250 ML IV SCH ×2 (06:19→17:58)
[2019-10-03 06:21] LABS: Basophils % 0.2 % (0.0-0.8); Eosinophils # 0.1 10*3/uL (0.0-0.87); Eosinophils % 0.9 % (0.00-10.9); Hematocrit 30.3 VOL% (42.0-52.0); Hemoglobin 10.5 GM/DL (14.0-18.0); Immature Granulocytes % 0.9 %; Immature Granulocytes Absolute 0.05 #; Lymphocytes # 1.2 10*3/uL (1.4-4.0); Lymphocytes % 22.2 % (21.2-54.2); Mean Corpuscular HGB Conc 34.7 GM/DL (32-36); Mean Corpuscular Volume 85.1 FL (87-102); Mean Platelet Volume 10.1 FL (9.6-12.0); Monocytes % 10.6 % (1.7-12.7); Neutrophils % 65.2 % (38.7-73.9); Platelet Count 153 T/CUMM (130-400); Red Blood Count 3.56 MC/CUMM (3.8-5.5); Red Cell Distribution Width 14.1 % (9.3-17.3); White Blood Count 5.5 T/CUMM (4-12)
[2019-10-03 06:41] LABS: Calcium 8.1 MG/DL (8.5-10.1); Osmolality,Calculated 245.8 MOS/KG (273-304)
[2019-10-03 06:46] LABS: Risk Ratio 1.45; VLDL CHOLESTEROL 11.4 MG/DL
[2019-10-03] MEDS ORDERED: SODIUM CHLORIDE 0.9% 1,000 ML IV SCH (08:30)
[2019-10-03] MEDS: PANTOPRAZOLE 40 MG TABLET PO SCH (08:32)
[2019-10-03] MEDS: FUROSEMIDE 40 MG/4 ML VIAL IV SCH ×2 (10:14→16:29)
[2019-10-03] MEDS ORDERED: POTASSIUM CHLORIDE 20 MEQ TABLET PO ONE (11:00)
[2019-10-03] MEDS: POLYETHYLENE GLYCOL POWDER 17 GM PACK PO SCH (12:54)
[2019-10-03] MEDS: ENOXAPARIN 40 MG/0.4 ML SYRINGE SUBCUT SCH (20:24)
[2019-10-03] MEDS: clonazePAM 0.5 MG TABLET PO SCH (23:00)
[2019-10-03] MEDS: busPIRone 15 MG TABLET PO SCH (23:00)
[2019-10-04] MEDS: CEFEPIME 1,000 MG in SODIUM CHLORIDE 0.9% 100 ML IV SCH ×4 (01:48→19:55)
[2019-10-04] MEDS: VANCOMYCIN INJ 1,250 MG in SODIUM CHLORIDE 0.9% 250 ML IV SCH ×2 (05:42→18:28)
[2019-10-04 06:10] LABS: Basophils % 0.2 % (0.0-0.8); Eosinophils # 0.1 10*3/uL (0.0-0.87); Eosinophils % 1.8 % (0.00-10.9); Hematocrit 33.5 VOL% (42.0-52.0); Hemoglobin 11.3 GM/DL (14.0-18.0); Immature Granulocytes % 1.3 %; Immature Granulocytes Absolute 0.07 #; Lymphocytes # 1.4 10*3/uL (1.4-4.0); Mean Corpuscular HGB Conc 33.7 GM/DL (32-36); Mean Corpuscular Volume 86.6 FL (87-102); Mean Platelet Volume 9.7 FL (9.6-12.0); Monocytes % 14.5 % (1.7-12.7); Neutrophils % 57.2 % (38.7-73.9); Platelet Count 213 T/CUMM (130-400); Red Blood Count 3.87 MC/CUMM (3.8-5.5); Red Cell Distribution Width 14.3 % (9.3-17.3); White Blood Count 5.5 T/CUMM (4-12)
[2019-10-04 06:24] LABS: Calcium 8.2 MG/DL (8.5-10.1); Osmolality,Calculated 253.4 MOS/KG (273-304)
[2019-10-04] MEDS: POLYETHYLENE GLYCOL POWDER 17 GM PACK PO SCH (08:19)
[2019-10-04] MEDS: FUROSEMIDE 40 MG/4 ML VIAL IV SCH ×2 (08:19→16:02)
[2019-10-04] MEDS: PANTOPRAZOLE 40 MG TABLET PO SCH (08:22)
[2019-10-04] MEDS: busPIRone 15 MG TABLET PO SCH ×3 (08:22→21:32)
[2019-10-04] MEDS: clonazePAM 0.5 MG TABLET PO SCH ×3 (08:22→21:32)
[2019-10-04] MEDS: POTASSIUM CHLORIDE 20 MEQ TABLET PO PRN ×4 (08:25→16:04)
[2019-10-04] MEDS: FLUoxetine 20 MG CAPSULE PO SCH (12:13)
[2019-10-04] MEDS: SIMVASTATIN 10 MG TABLET PO SCH (16:01)
[2019-10-04] MEDS: oxyCODONE/ACETAMINOPHEN 5-325 MG TABLET PO PRN (16:02)
[2019-10-04] MEDS: PRAMIPEXOLE 0.25 MG TABLET PO SCH (18:28)
[2019-10-04] MEDS: ENOXAPARIN 40 MG/0.4 ML SYRINGE SUBCUT SCH (21:32)
[2019-10-04] MEDS: TAMSULOSIN 0.4 MG CAPSULE PO SCH (21:32)
[2019-10-04] MEDS: MIRTAZAPINE 30 MG TABLET PO SCH (21:32)
[2019-10-05] MEDS: POTASSIUM CHLORIDE 20 MEQ TABLET PO PRN ×3 (00:37→04:46)
[2019-10-05] MEDS: CEFEPIME 1,000 MG in SODIUM CHLORIDE 0.9% 100 ML IV SCH ×2 (02:30→12:40)
[2019-10-05 05:12] LABS: Basophils % 0.8 % (0.0-0.8); Eosinophils # 0.3 10*3/uL (0.0-0.87); Eosinophils % 5.4 % (0.00-10.9); Hematocrit 37.1 VOL% (42.0-52.0); Immature Granulocytes % 1.7 %; Immature Granulocytes Absolute 0.09 #; Lymphocytes # 1.9 10*3/uL (1.4-4.0); Lymphocytes % 36.3 % (21.2-54.2); Mean Corpuscular HGB Conc 32.3 GM/DL (32-36); Mean Corpuscular Volume 89.2 FL (87-102); Mean Platelet Volume 9.6 FL (9.6-12.0); Monocytes % 15.7 % (1.7-12.7); Neutrophils % 40.1 % (38.7-73.9); Platelet Count 221 T/CUMM (130-400); Red Blood Count 4.16 MC/CUMM (3.8-5.5); Red Cell Distribution Width 14.6 % (9.3-17.3); White Blood Count 5.2 T/CUMM (4-12)
[2019-10-05 05:52] LABS: Eosinophils 9 % (0-10); Lymphocytes 26 % (20-55); Platelet Estimate Adequate; Segmented Neutrophils 45 % (50-85); Total Cells Counted 100
[2019-10-05 05:53] LABS: Hypochromasia 1+
[2019-10-05] MEDS: VANCOMYCIN INJ 1,250 MG in SODIUM CHLORIDE 0.9% 250 ML IV SCH (06:01)
[2019-10-05] MEDS: PRAMIPEXOLE 0.25 MG TABLET PO SCH ×2 (10:21→17:45)
[2019-10-05] MEDS: FLUoxetine 20 MG CAPSULE PO SCH (10:21)
[2019-10-05] MEDS: FERROUS SULFATE 325 MG TABLET PO SCH (10:21)
[2019-10-05] MEDS: CARBIDOPA/LEVODOPA 25-100 MG TABLET PO SCH (10:21)
[2019-10-05] MEDS: DOCUSATE SODIUM 100 MG CAPSULE PO SCH (10:21)
[2019-10-05] MEDS: FUROSEMIDE 40 MG TABLET PO SCH (10:21)
[2019-10-05] MEDS: PANTOPRAZOLE 40 MG TABLET PO SCH (10:21)
[2019-10-05] MEDS: clonazePAM 0.5 MG TABLET PO SCH ×3 (10:21→20:30)
[2019-10-05] MEDS: FINASTERIDE 5 MG TABLET PO SCH (10:21)
[2019-10-05] MEDS: TAMSULOSIN 0.4 MG CAPSULE PO SCH ×2 (10:21→20:30)
[2019-10-05] MEDS: busPIRone 15 MG TABLET PO SCH ×3 (10:21→20:30)
[2019-10-05] MEDS ORDERED: MAGNESIUM HYDROXIDE SUSP 30 ML UDCUP PO PRN (10:49)
[2019-10-05] MEDS ORDERED: BISACODYL 10 MG SUPP RECTAL PRN (11:54)
[2019-10-05] MEDS: POLYETHYLENE GLYCOL POWDER 17 GM PACK PO SCH (15:30)
[2019-10-05] MEDS: cefTRIAXone 1,000 MG in SYRINGE 1 EACH IV SCH (19:27)
[2019-10-05] MEDS: FUROSEMIDE 40 MG/4 ML VIAL IV SCH (19:45)
[2019-10-05 19:56] LABS: Albumin 2.6 G/DL (3.4-5.0); Bilirubin,Total 1.1 MG/DL (0.2-1.0); Calcium 9.1 MG/DL (8.5-10.1); Ferritin 115.3 ng/ml (26-388); Osmolality,Calculated 253.2 MOS/KG (273-304); Total Protein 6.7 G/DL (6.4-8.3)
[2019-10-05] MEDS: MIRTAZAPINE 30 MG TABLET PO SCH (20:30)
[2019-10-05] MEDS: SIMVASTATIN 10 MG TABLET PO SCH (20:30)
[2019-10-05] MEDS: ENOXAPARIN 40 MG/0.4 ML SYRINGE SUBCUT SCH (20:30)
[2019-10-05] MEDS: MINERAL OIL ENEMA 133 ML BOTTLE RECTAL ONE (21:49)
[2019-10-06] MEDS ORDERED: MINERAL OIL ENEMA 133 ML BOTTLE RECTAL ONE (05:30)
[2019-10-06 05:54] LABS: Calcium 8.3 MG/DL (8.5-10.1); Osmolality,Calculated 255.1 MOS/KG (273-304)
[2019-10-06] MEDS: MINERAL OIL ENEMA 133 ML BOTTLE RECTAL ONE (07:29)
[2019-10-06] MEDS: FLUoxetine 20 MG CAPSULE PO SCH (09:25)
[2019-10-06] MEDS: DOCUSATE SODIUM 100 MG CAPSULE PO SCH (09:25)
[2019-10-06] MEDS: clonazePAM 0.5 MG TABLET PO SCH ×3 (09:26→21:09)
[2019-10-06] MEDS: FINASTERIDE 5 MG TABLET PO SCH (09:26)
[2019-10-06] MEDS: PRAMIPEXOLE 0.25 MG TABLET PO SCH ×2 (09:26→17:15)
[2019-10-06] MEDS: FERROUS SULFATE 325 MG TABLET PO SCH (09:26)
[2019-10-06] MEDS: TAMSULOSIN 0.4 MG CAPSULE PO SCH ×2 (09:27→21:09)
[2019-10-06] MEDS: CARBIDOPA/LEVODOPA 25-100 MG TABLET PO SCH (09:27)
[2019-10-06] MEDS: FUROSEMIDE 40 MG TABLET PO SCH (09:27)
[2019-10-06] MEDS: POLYETHYLENE GLYCOL POWDER 17 GM PACK PO SCH (09:27)
[2019-10-06] MEDS: PANTOPRAZOLE 40 MG TABLET PO SCH (09:27)
[2019-10-06] MEDS: busPIRone 15 MG TABLET PO SCH ×3 (09:28→21:09)
[2019-10-06] MEDS: POTASSIUM CHLORIDE 20 MEQ TABLET PO PRN ×3 (09:52→14:20)
[2019-10-06] MEDS ORDERED: TUBERCULIN SKIN TEST 0.1 ML SYRINGE INTRADERM ONE (14:01)
[2019-10-06] MEDS: cefTRIAXone 1,000 MG in SYRINGE 1 EACH IV SCH (14:20)
[2019-10-06] MEDS: SIMVASTATIN 10 MG TABLET PO SCH (16:22)
[2019-10-06] MEDS: ENOXAPARIN 40 MG/0.4 ML SYRINGE SUBCUT SCH (21:09)
[2019-10-06] MEDS: MIRTAZAPINE 30 MG TABLET PO SCH (21:10)
[2019-10-06] MEDS: oxyCODONE/ACETAMINOPHEN 5-325 MG TABLET PO PRN (21:13)
[2019-10-07 05:26] LABS: Calcium 8.7 MG/DL (8.5-10.1); Osmolality,Calculated 261.8 MOS/KG (273-304)
[2019-10-07] MEDS: PRAMIPEXOLE 0.25 MG TABLET PO SCH ×2 (08:00→17:26)
[2019-10-07] MEDS: CARBIDOPA/LEVODOPA 25-100 MG TABLET PO SCH (08:00)
[2019-10-07] MEDS: POLYETHYLENE GLYCOL POWDER 17 GM PACK PO SCH (09:00)
[2019-10-07] MEDS: FERROUS SULFATE 325 MG TABLET PO SCH (09:00)
[2019-10-07] MEDS: FLUoxetine 20 MG CAPSULE PO SCH (09:00)
[2019-10-07] MEDS: FINASTERIDE 5 MG TABLET PO SCH (09:00)
[2019-10-07] MEDS: TAMSULOSIN 0.4 MG CAPSULE PO SCH ×2 (09:00→21:59)
[2019-10-07] MEDS: DOCUSATE SODIUM 100 MG CAPSULE PO SCH (09:00)
[2019-10-07] MEDS: FUROSEMIDE 40 MG TABLET PO SCH (09:00)
[2019-10-07] MEDS: busPIRone 15 MG TABLET PO SCH ×3 (09:00→21:59)
[2019-10-07] MEDS: PANTOPRAZOLE 40 MG TABLET PO SCH (09:00)
[2019-10-07] MEDS: clonazePAM 0.5 MG TABLET PO SCH ×3 (09:00→21:58)
[2019-10-07] MEDS: cefTRIAXone 1,000 MG in SYRINGE 1 EACH IV SCH (17:10)
[2019-10-07] MEDS: SIMVASTATIN 10 MG TABLET PO SCH (17:11)
[2019-10-07] MEDS: POTASSIUM CHLORIDE 20 MEQ TABLET PO PRN (21:59)
[2019-10-07] MEDS: ENOXAPARIN 40 MG/0.4 ML SYRINGE SUBCUT SCH (21:59)
[2019-10-07] MEDS: MIRTAZAPINE 30 MG TABLET PO SCH (21:59)
[2019-10-08] MEDS: POLYETHYLENE GLYCOL POWDER 17 GM PACK PO SCH (08:25)
[2019-10-08] MEDS: PRAMIPEXOLE 0.25 MG TABLET PO SCH ×2 (08:25→17:01)
[2019-10-08] MEDS: clonazePAM 0.5 MG TABLET PO SCH ×3 (08:25→21:55)
[2019-10-08] MEDS: busPIRone 15 MG TABLET PO SCH ×3 (08:26→21:55)
[2019-10-08] MEDS: FLUoxetine 20 MG CAPSULE PO SCH (08:26)
[2019-10-08] MEDS: FINASTERIDE 5 MG TABLET PO SCH (08:26)
[2019-10-08] MEDS: oxyCODONE/ACETAMINOPHEN 5-325 MG TABLET PO PRN (08:26)
[2019-10-08] MEDS: DOCUSATE SODIUM 100 MG CAPSULE PO SCH (08:26)
[2019-10-08] MEDS: FUROSEMIDE 40 MG TABLET PO SCH (08:26)
[2019-10-08] MEDS: TAMSULOSIN 0.4 MG CAPSULE PO SCH ×2 (08:26→21:55)
[2019-10-08] MEDS: FERROUS SULFATE 325 MG TABLET PO SCH (08:26)
[2019-10-08] MEDS: CARBIDOPA/LEVODOPA 25-100 MG TABLET PO SCH (08:26)
[2019-10-08] MEDS: PANTOPRAZOLE 40 MG TABLET PO SCH (08:27)
[2019-10-08] MEDS: lisinopriL 20 MG TABLET PO SCH ×2 (08:57→21:55)
[2019-10-08] MEDS: cefTRIAXone 1,000 MG in SYRINGE 1 EACH IV SCH (14:14)
[2019-10-08] MEDS: SIMVASTATIN 10 MG TABLET PO SCH (17:01)
[2019-10-08] MEDS: ENOXAPARIN 40 MG/0.4 ML SYRINGE SUBCUT SCH (21:50)
[2019-10-08] MEDS: MIRTAZAPINE 30 MG TABLET PO SCH (21:55)
[2019-10-09 05:59] LABS: Eosinophils # 0.3 10*3/uL (0.0-0.87); Eosinophils % 7.2 % (0.00-10.9); Hematocrit 39.5 VOL% (42.0-52.0); Hemoglobin 12.7 GM/DL (14.0-18.0); Immature Granulocytes % 2.3 %; Immature Granulocytes Absolute 0.09 #; Lymphocytes # 1.5 10*3/uL (1.4-4.0); Lymphocytes % 38.8 % (21.2-54.2); Mean Corpuscular HGB Conc 32.2 GM/DL (32-36); Mean Corpuscular Volume 90.6 FL (87-102); Mean Platelet Volume 10.8 FL (9.6-12.0); Monocytes % 12.1 % (1.7-12.7); Neutrophils % 38.6 % (38.7-73.9); Platelet Count 194 T/CUMM (130-400); Red Blood Count 4.36 MC/CUMM (3.8-5.5); Red Cell Distribution Width 14.4 % (9.3-17.3); White Blood Count 3.9 T/CUMM (4-12)
[2019-10-09 07:20] LABS: Calcium 8.7 MG/DL (8.5-10.1); Osmolality,Calculated 257.9 MOS/KG (273-304)
[2019-10-09] MEDS: PRAMIPEXOLE 0.25 MG TABLET PO SCH ×2 (08:50→17:05)
[2019-10-09] MEDS: FLUoxetine 20 MG CAPSULE PO SCH (08:50)
[2019-10-09] MEDS: TAMSULOSIN 0.4 MG CAPSULE PO SCH ×2 (08:50→21:05)
[2019-10-09] MEDS: FERROUS SULFATE 325 MG TABLET PO SCH (08:50)
[2019-10-09] MEDS: FUROSEMIDE 40 MG TABLET PO SCH (08:50)
[2019-10-09] MEDS: clonazePAM 0.5 MG TABLET PO SCH ×3 (08:50→21:05)
[2019-10-09] MEDS: DOCUSATE SODIUM 100 MG CAPSULE PO SCH (08:51)
[2019-10-09] MEDS: lisinopriL 20 MG TABLET PO SCH ×2 (08:51→21:05)
[2019-10-09] MEDS: busPIRone 15 MG TABLET PO SCH ×3 (08:51→21:05)
[2019-10-09] MEDS: PANTOPRAZOLE 40 MG TABLET PO SCH (08:51)
[2019-10-09] MEDS: POLYETHYLENE GLYCOL POWDER 17 GM PACK PO SCH (08:51)
[2019-10-09] MEDS: CARBIDOPA/LEVODOPA 25-100 MG TABLET PO SCH (08:51)
[2019-10-09] MEDS: FINASTERIDE 5 MG TABLET PO SCH (08:51)
[2019-10-09] MEDS: oxyCODONE/ACETAMINOPHEN 5-325 MG TABLET PO PRN (08:51)
[2019-10-09 08:52] LABS: Band Neutrophils 1 % (0-10); Eosinophils 4 % (0-10); Hypochromasia Slight; Lymphocytes 39 % (20-55); Platelet Estimate Normal; Segmented Neutrophils 44 % (50-85); Total Cells Counted 100
[2019-10-09] MEDS: cefTRIAXone 1,000 MG in SYRINGE 1 EACH IV SCH (14:26)
[2019-10-09] MEDS: SIMVASTATIN 10 MG TABLET PO SCH (17:05)
[2019-10-09] MEDS: MIRTAZAPINE 30 MG TABLET PO SCH (21:05)
[2019-10-09] MEDS: ENOXAPARIN 40 MG/0.4 ML SYRINGE SUBCUT SCH (21:05)
[2019-10-10 05:53] LABS: Calcium 8.4 MG/DL (8.5-10.1); Osmolality,Calculated 269.2 MOS/KG (273-304)
[2019-10-10] MEDS: CARBIDOPA/LEVODOPA 25-100 MG TABLET PO SCH (11:03)
[2019-10-10] MEDS: FERROUS SULFATE 325 MG TABLET PO SCH (11:03)
[2019-10-10] MEDS: clonazePAM 0.5 MG TABLET PO SCH ×3 (11:03→22:30)
[2019-10-10] MEDS: FLUoxetine 20 MG CAPSULE PO SCH (11:03)
[2019-10-10] MEDS: busPIRone 15 MG TABLET PO SCH ×3 (11:03→22:29)
[2019-10-10] MEDS: PANTOPRAZOLE 40 MG TABLET PO SCH (11:04)
[2019-10-10] MEDS: PRAMIPEXOLE 0.25 MG TABLET PO SCH ×2 (11:04→19:05)
[2019-10-10] MEDS: lisinopriL 20 MG TABLET PO SCH ×2 (11:04→22:30)
[2019-10-10] MEDS: POLYETHYLENE GLYCOL POWDER 17 GM PACK PO SCH (11:05)
[2019-10-10] MEDS: FINASTERIDE 5 MG TABLET PO SCH (11:05)
[2019-10-10] MEDS: DOCUSATE SODIUM 100 MG CAPSULE PO SCH (11:05)
[2019-10-10] MEDS: TAMSULOSIN 0.4 MG CAPSULE PO SCH ×2 (11:05→22:29)
[2019-10-10] MEDS: FUROSEMIDE 40 MG TABLET PO SCH (11:05)
[2019-10-10] MEDS: SIMVASTATIN 10 MG TABLET PO SCH (16:18)
[2019-10-10] MEDS: cefTRIAXone 1,000 MG in SYRINGE 1 EACH IV SCH (16:18)
[2019-10-10] MEDS: ENOXAPARIN 40 MG/0.4 ML SYRINGE SUBCUT SCH (22:30)
[2019-10-10] MEDS: MIRTAZAPINE 30 MG TABLET PO SCH (22:31)
[2019-10-11] MEDS: clonazePAM 0.5 MG TABLET PO SCH (08:37)
[2019-10-11] MEDS: POLYETHYLENE GLYCOL POWDER 17 GM PACK PO SCH (08:37)
[2019-10-11] MEDS: lisinopriL 20 MG TABLET PO SCH ×2 (08:38→21:34)
[2019-10-11] MEDS: CARBIDOPA/LEVODOPA 25-100 MG TABLET PO SCH (08:38)
[2019-10-11] MEDS: busPIRone 15 MG TABLET PO SCH ×3 (08:38→21:33)
[2019-10-11] MEDS: FERROUS SULFATE 325 MG TABLET PO SCH (08:38)
[2019-10-11] MEDS: FINASTERIDE 5 MG TABLET PO SCH (08:38)
[2019-10-11] MEDS: TAMSULOSIN 0.4 MG CAPSULE PO SCH ×2 (08:38→21:33)
[2019-10-11] MEDS: PANTOPRAZOLE 40 MG TABLET PO SCH (08:38)
[2019-10-11] MEDS: DOCUSATE SODIUM 100 MG CAPSULE PO SCH (08:38)
[2019-10-11] MEDS: FUROSEMIDE 40 MG TABLET PO SCH (08:38)
[2019-10-11] MEDS: oxyCODONE/ACETAMINOPHEN 5-325 MG TABLET PO PRN (08:42)
[2019-10-11] MEDS: PRAMIPEXOLE 0.25 MG TABLET PO SCH ×2 (08:42→17:51)
[2019-10-11] MEDS: FLUoxetine 20 MG CAPSULE PO SCH (10:09)
[2019-10-11] MEDS: SIMVASTATIN 10 MG TABLET PO SCH (16:16)
[2019-10-11] MEDS: ENOXAPARIN 40 MG/0.4 ML SYRINGE SUBCUT SCH (21:34)
[2019-10-11] MEDS: MIRTAZAPINE 30 MG TABLET PO SCH (21:34)
[2019-10-12 09:01] LABS: Basophils % 0.6 % (0.0-0.8); Eosinophils # 0.2 10*3/uL (0.0-0.87); Eosinophils % 3.2 % (0.00-10.9); Hematocrit 39.9 VOL% (42.0-52.0); Hemoglobin 12.8 GM/DL (14.0-18.0); Immature Granulocytes % 2.5 %; Immature Granulocytes Absolute 0.12 #; Lymphocytes # 1.6 10*3/uL (1.4-4.0); Lymphocytes % 34.7 % (21.2-54.2); Mean Corpuscular HGB Conc 32.1 GM/DL (32-36); Mean Corpuscular Volume 91.3 FL (87-102); Mean Platelet Volume 9.7 FL (9.6-12.0); Monocytes % 9.7 % (1.7-12.7); Neutrophils % 49.3 % (38.7-73.9); Platelet Count 245 T/CUMM (130-400); Red Blood Count 4.37 MC/CUMM (3.8-5.5); Red Cell Distribution Width 14.3 % (9.3-17.3); White Blood Count 4.7 T/CUMM (4-12)
[2019-10-12 09:10] LABS: Calcium 8.6 MG/DL (8.5-10.1); Osmolality,Calculated 273.8 MOS/KG (273-304)
[2019-10-12] MEDS: CARBIDOPA/LEVODOPA 25-100 MG TABLET PO SCH (10:29)
[2019-10-12] MEDS: POLYETHYLENE GLYCOL POWDER 17 GM PACK PO SCH (10:29)
[2019-10-12] MEDS: busPIRone 15 MG TABLET PO SCH ×3 (10:29→20:57)
[2019-10-12] MEDS: FERROUS SULFATE 325 MG TABLET PO SCH (10:30)
[2019-10-12] MEDS: lisinopriL 20 MG TABLET PO SCH ×2 (10:30→20:57)
[2019-10-12] MEDS: PANTOPRAZOLE 40 MG TABLET PO SCH (10:30)
[2019-10-12] MEDS: DOCUSATE SODIUM 100 MG CAPSULE PO SCH (10:30)
[2019-10-12] MEDS: FINASTERIDE 5 MG TABLET PO SCH (10:30)
[2019-10-12] MEDS: TAMSULOSIN 0.4 MG CAPSULE PO SCH ×2 (10:30→20:57)
[2019-10-12] MEDS: FUROSEMIDE 40 MG TABLET PO SCH (10:30)
[2019-10-12] MEDS: PRAMIPEXOLE 0.25 MG TABLET PO SCH ×2 (10:30→17:48)
[2019-10-12] MEDS: FLUoxetine 20 MG CAPSULE PO SCH (10:30)
[2019-10-12] MEDS: SIMVASTATIN 10 MG TABLET PO SCH (16:48)
[2019-10-12] MEDS: MIRTAZAPINE 30 MG TABLET PO SCH (20:56)
[2019-10-12] MEDS: clonazePAM 0.5 MG TABLET PO SCH (20:57)
[2019-10-12] MEDS: ENOXAPARIN 40 MG/0.4 ML SYRINGE SUBCUT SCH (20:57)
[2019-10-13 07:21] LABS: Calcium 8.7 MG/DL (8.5-10.1); Osmolality,Calculated 267.2 MOS/KG (273-304)
[2019-10-13] MEDS: POLYETHYLENE GLYCOL POWDER 17 GM PACK PO SCH ×2 (09:11→21:06)
[2019-10-13] MEDS: TAMSULOSIN 0.4 MG CAPSULE PO SCH ×2 (09:12→21:05)
[2019-10-13] MEDS: CARBIDOPA/LEVODOPA 25-100 MG TABLET PO SCH (09:12)
[2019-10-13] MEDS: FUROSEMIDE 40 MG TABLET PO SCH (09:12)
[2019-10-13] MEDS: POTASSIUM CHLORIDE 20 MEQ TABLET PO PRN (09:12)
[2019-10-13] MEDS: DOCUSATE SODIUM 100 MG CAPSULE PO SCH (09:12)
[2019-10-13] MEDS: FINASTERIDE 5 MG TABLET PO SCH (09:12)
[2019-10-13] MEDS: busPIRone 15 MG TABLET PO SCH ×5 (09:12→21:06)
[2019-10-13] MEDS: lisinopriL 20 MG TABLET PO SCH ×2 (09:13→21:05)
[2019-10-13] MEDS: clonazePAM 0.5 MG TABLET PO SCH ×3 (09:13→21:05)
[2019-10-13] MEDS: PANTOPRAZOLE 40 MG TABLET PO SCH (09:13)
[2019-10-13] MEDS: FLUoxetine 20 MG CAPSULE PO SCH (09:13)
[2019-10-13] MEDS: PRAMIPEXOLE 0.25 MG TABLET PO SCH ×2 (09:13→17:30)
[2019-10-13] MEDS: FERROUS SULFATE 325 MG TABLET PO SCH (09:13)
[2019-10-13 09:46] LABS: Basophils % 0.6 % (0.0-0.8); Eosinophils # 0.2 10*3/uL (0.0-0.87); Eosinophils % 3.5 % (0.00-10.9); Hemoglobin 13.4 GM/DL (14.0-18.0); Immature Granulocytes % 1.5 %; Immature Granulocytes Absolute 0.08 #; Lymphocytes # 1.5 10*3/uL (1.4-4.0); Mean Corpuscular HGB Conc 32.7 GM/DL (32-36); Mean Corpuscular Volume 89.5 FL (87-102); Mean Platelet Volume 9.8 FL (9.6-12.0); Monocytes % 7.5 % (1.7-12.7); Neutrophils % 58.9 % (38.7-73.9); Platelet Count 256 T/CUMM (130-400); Red Blood Count 4.58 MC/CUMM (3.8-5.5); Red Cell Distribution Width 14.3 % (9.3-17.3); White Blood Count 5.2 T/CUMM (4-12)
[2019-10-13] MEDS: oxyCODONE/ACETAMINOPHEN 5-325 MG TABLET PO PRN (15:11)
[2019-10-13] MEDS: SIMVASTATIN 10 MG TABLET PO SCH (17:30)
[2019-10-13] MEDS: MIRTAZAPINE 30 MG TABLET PO SCH (21:04)
[2019-10-13] MEDS: ENOXAPARIN 40 MG/0.4 ML SYRINGE SUBCUT SCH (21:05)
[2019-10-14 06:25] LABS: Basophils % 0.7 % (0.0-0.8); Eosinophils # 0.3 10*3/uL (0.0-0.87); Eosinophils % 6.3 % (0.00-10.9); Hematocrit 39.8 VOL% (42.0-52.0); Hemoglobin 12.5 GM/DL (14.0-18.0); Immature Granulocytes % 3.1 %; Immature Granulocytes Absolute 0.14 #; Lymphocytes # 1.9 10*3/uL (1.4-4.0); Lymphocytes % 42.5 % (21.2-54.2); Mean Corpuscular HGB Conc 31.4 GM/DL (32-36); Mean Platelet Volume 10.2 FL (9.6-12.0); Monocytes % 8.1 % (1.7-12.7); Neutrophils % 39.3 % (38.7-73.9); Platelet Count 249 T/CUMM (130-400); Red Blood Count 4.28 MC/CUMM (3.8-5.5); Red Cell Distribution Width 14.6 % (9.3-17.3); White Blood Count 4.6 T/CUMM (4-12)
[2019-10-14 06:39] LABS: Osmolality,Calculated 269.2 MOS/KG (273-304)
[2019-10-14 07:54] VITALS: BP 186/79
[2019-10-14] MEDS ORDERED: amLODIPine 10 MG TABLET PO SCH (08:00)
[2019-10-14] MEDS: POLYETHYLENE GLYCOL POWDER 17 GM PACK PO SCH (09:08)
[2019-10-14] MEDS: clonazePAM 0.5 MG TABLET PO SCH (09:08)
[2019-10-14] MEDS: FERROUS SULFATE 325 MG TABLET PO SCH (09:09)
[2019-10-14] MEDS: FUROSEMIDE 40 MG TABLET PO SCH (09:09)
[2019-10-14] MEDS: DOCUSATE SODIUM 100 MG CAPSULE PO SCH (09:09)
[2019-10-14] MEDS: TAMSULOSIN 0.4 MG CAPSULE PO SCH (09:09)
[2019-10-14] MEDS: PRAMIPEXOLE 0.25 MG TABLET PO SCH (09:09)
[2019-10-14] MEDS: PANTOPRAZOLE 40 MG TABLET PO SCH (09:09)
[2019-10-14] MEDS: POTASSIUM CHLORIDE 20 MEQ TABLET PO PRN (09:09)
[2019-10-14] MEDS: CARBIDOPA/LEVODOPA 25-100 MG TABLET PO SCH (09:09)
[2019-10-14] MEDS: FINASTERIDE 5 MG TABLET PO SCH (09:10)
[2019-10-14] MEDS: busPIRone 15 MG TABLET PO SCH ×2 (09:10→09:16)
[2019-10-14] MEDS: FLUoxetine 20 MG CAPSULE PO SCH (09:10)
[2019-10-14] MEDS: oxyCODONE/ACETAMINOPHEN 5-325 MG TABLET PO PRN (09:11)
[2019-10-14] MEDS: lisinopriL 20 MG TABLET PO SCH (09:16)
== END 2019-10-14 10:30 | DRG 291 ==
LOC: N.ED 11:57 → N.EDINP 15:52 → SUPCPDRO 15:52 → SUATTDRO 15:52 → N.2E 17:04 → N.3E 10-10 17:09
PROVIDERS: ADMIT Internal Medicine; ATTEND Internal Medicine